=== PATIENT | male | born 1980 | race Caucasian/White ===

== ENCOUNTER 2021-01-24 15:16 | Emergency (ER) | payer MEDICAID ==
[~2021-01-24] VITALS: Ht 172.7 cm; Wt 81.6 kg
--- NOTE | 2021-01-24 15:43 | NUR ---
[facility] FOR [facility]HER LEVEL OF CARE FOR HAND EMTALA REQUEST. SPOKE TO DEBORA, TOOK DOWN INFORMATION ON PATIENT AND WANTS US TO FAX CLINICALS, FACESHEET, AND X-RAY IMAGING. ONCE RECIEVED INFO WILL SEE IF ANY FACILITIES HAVE CAPACITY.
--- NOTE | 2021-01-24 15:52 | NUR ---
PAGED DR. ALLEN. WILL CALL BACK.
[2021-01-24] MEDS ORDERED: HYDROCODONE/APAP 5/325MG TABLET ONE (16:00)
[2021-01-24] MEDS ORDERED: HYDROCODONE/APAP 5/325MG TABLET PO ONE (16:00)
[2021-01-24] MEDS ORDERED: CEFAZOLIN 1 GM in IV D5W 50 ML IV ONE (16:00)
--- NOTE | 2021-01-24 16:15 | NUR ---
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 RATES PAIN 10/10. WILL CONTINUE TO MONITOR THE PATIENT.
[2021-01-24 16:20] LABS: BASOPHILS % (AUTO) 0.4 % (0.0-2.0); EOSINOPHILS % (AUTO) 0.4 % (0.0-6.0); HEMATOCRIT 50 % (39-51); HEMOGLOBIN 17.4 g/dL (13.5-17.5); LYMPHOCYTES # (AUTO) 2.5 K/uL (0.8-4.8); LYMPHOCYTES % (AUTO) 20.7 % (20.0-44.0); MEAN CORPUSCULAR HGB CONC 35 g/dl (31.0-36.0); MEAN CORPUSCULAR VOLUME 89 fL (80-96); MONOCYTES # (AUTO) 0.9 K/uL (0.1-1.30); MONOCYTES % (AUTO) 7.5 % (2.0-12.0); NEUTROPHILS # (AUTO) 8.5 K/uL (1.8-8.9); PLATELET COUNT (AUTO) 227 K/uL (150-450)
--- NOTE | 2021-01-24 16:25 | NUR ---
CALLED [facility] FOR HIGHER LEVEL OF CARE TRANSFER. SPOKE TO TERRANCE AND WANTS US TO FAX CLINICALS AND XRAY RESULTS.
[2021-01-24 16:41] LABS: CALCIUM, SERUM 8.4 mg/dL (8.5-10.1); POTASSIUM 4.4 mmol/L (3.5-5.1)
--- NOTE | 2021-01-24 16:52 | NUR ---
RECIEVED A CALL FROM ALEJO FROM [facility] [place]. AT THIS MOMENT HAVE NO BEDS TO ACCOMODATE PATIENT.
--- NOTE | 2021-01-24 16:57 | NUR ---
FAXED CLINICALS TO DEBORA AT [facility].
--- NOTE | 2021-01-24 16:59 | NUR ---
COVD SWAB DONE AND SENT TO THE LAB
--- NOTE | 2021-01-24 17:21 | NUR ---
RECEIVED A CALL FROM TERRANCE AT [facility], NO AVAILABLE BEDS AT THIS TIME.
--- NOTE | 2021-01-24 17:40 | NUR ---
CALLED [facility] FOR HIGHER LEVEL OF CARE FOR HAND SPECIALTY. THEY ARE UNABLE TO ACCOMODATE DUE TO NO HAND SPECIALTY OVERCASTER.
--- NOTE | 2021-01-24 17:43 | NUR ---
CALLED DR. ALLEN PERSONAL PHONE FOR CONSULT. DR. ALLEN DOES NOT DO HAND. WILL CONTINUE TO CALL.
--- NOTE | 2021-01-24 17:46 | NUR ---
CALLED TO FOLLOW UP WITH [facility] ABOUT HIGHER LEVEL OF CARE TRANSFER. SPOKE TO EMILEE AND THE CASE HAS BEEN DENIED DUE TO NO CAPACITY.
--- NOTE | 2021-01-24 18:02 | NUR ---
FAXED CLINICALS TO [facility]. ATTENTION MADE TO FABIAN. FAX NUMBER PROVIDED BY FABIAN IS [phone]. WAITING FOR FABIAN TO CALL BACK ABOUT ACCEPTANCE OF INFORMATION.
[2021-01-24] MEDS ORDERED: LIDOCAINE 1%-EPI 1:100,000 20 ML VIAL ONE (19:20)
[2021-01-24 19:30] VITALS: BP 146/79
[2021-01-24] MEDS ORDERED: TRAMADOL HCL 50 MG TABLET ONE (19:38)
[2021-01-24] MEDS ORDERED: TRAMADOL HCL 50 MG TABLET PO ONE (20:00)
--- NOTE | 2021-01-24 20:15 | NUR ---
Patient does not wish to proceed with medical care recommended by Dr. Francis. Patient given information related to possible complications, up to and including , which could occur as a result of leaving the hospital at this time. Patient verbalizes understanding of risks involved due to leaving against medical advice. Patient has signed AMA form.
== END 2021-01-24 20:15 | disposition left against medical advice (07) ==
LOC: ER 15:18
DX: S62.202B Unspecified fracture of first metacarpal bone, left hand, initial encounter for open fracture (principal); W27.0XXA Contact with workbench tool, initial encounter; Y92.69 Other specified industrial and construction area as the place of occurrence of the external cause; Y99.0 Civilian activity done for income or pay; Z20.822 Contact with and (suspected) exposure to COVID-19; Z53.29 Procedure and treatment not carried out because of patient's decision for other reasons; S66.922A Laceration of unspecified muscle, fascia and tendon at wrist and hand level, left hand, initial encounter; D72.829 Elevated white blood cell count, unspecified
CPT/HCPCS: 12002; 36415; 73130; 80048; 85025; 85730; 87426; 96365; 99285; C9803; J0690; J3490; J7060